=== PATIENT | female | born 1970 ===

== ENCOUNTER 2017-04-01 08:37 | Emergency (ER) | payer OTHER ==
[2017-04-01 09:04] VITALS: BP 119/74; PULSE 67; TEMP 98; O2SAT 100
--- NOTE | 2017-04-01 10:23 | ED PDOC ---
HPI: Back Time Seen by Provider: 04/01/17 09:20 Chief Complaint (Nursing): Back Pain Chief Complaint (Provider): Back pain History Per: Patient History/Exam Limitations: no limitations Onset/Duration Of Symptoms: Days (starts since yesterday in the morning.), Sudden Onset, Persistent, Worse Since (worse since yesterday) Current Symptoms Are (Timing): Still Present Full Body Front + Back: 1 - lumbar area Quality Of Discomfort: Stabbing Severity: Severe Pain Scale Rating Of: 9 Previous Symptoms: Back Pain Associated Symptoms: Other (associated tingling, numbness and weakness in both lower extremities.) Exacerbating Factor(s): Movement, Standing Additional History Per: Patient Additional Complaint(s): CC: back pain. HPI: 46 yo female without PMH presents to ED with severe low back pain starting suddenly after she was cleaning the toilet and did a sudden movement, 9/10, constant, stabbing, radiated to both lower extremities, took Celebrex w/o improvement, worse with movement and walking. Associated tingling, numbness and weakness in both lower extremities, also feels dizzy. Denies fever, nausea, vomiting, headache, urinary difficulties. ROS: negative except as HPI. PMH: none PSH: C- section (1996), Hysterectomy( 2011). Allergies: NSAIDs ( mouth swelling). Meds: Celebrex. Past Medical History Reviewed: Nursing Documentation, Vital Signs Vital Signs: Last Vital Signs Temp 98 F 04/01/17 08:58 Pulse 67 04/01/17 08:58 Resp 20 04/01/17 08:58 BP 119/74 04/01/17 08:58 Pulse Ox 100 04/01/17 08:58 - Medical History PMH: No Chronic Diseases - Surgical History Surgical History: Other surgeries: Hysterectomy ( 2011) - Family History Family History: States: No Known Family Hx - Living Arrangements Living Arrangements: With Family - Social History Current smoker - smoking cessation education provided: No Alcohol: None Drugs: Denies - Home Medications Home Medications: Ambulatory Orders Medication Instructions Recorded Cyclobenzaprine [Cyclobenzaprine 10 mg PO TID #12 tab 04/01/17 HCl] predniSONE [predniSONE Tab] 10 mg PO TID #15 tab 04/01/17 - Allergies Allergies/Adverse Reactions: Allergies Allergy/AdvReac Type Severity Reaction Status Date / Time aspirin Allergy SWELLING Verified 04/01/17 08:57 ibuprofen Allergy SWELLING Verified 04/01/17 08:56 naproxen Allergy SWELLING Verified 04/01/17 08:57 Review of Systems ROS Statement: Except As Marked, All Systems Reviewed And Found Negative Constitutional: Negative for: Fever, Chills, Sweats, Malaise Eyes: Negative for: Pain, Vision Change ENT: Negative for: Ear Pain, Nose Pain, Mouth Pain, Throat Pain Cardiovascular: Negative for: Chest Pain, Palpitations, Edema Respiratory: Negative for: Cough, Shortness of Breath Gastrointestinal: Negative for: Nausea, Vomiting, Abdominal Pain Genitourinary Female: Negative for: Dysuria, Frequency, Incontinence Musculoskeletal: Positive for: Back Pain. Negative for: Neck Pain, Shoulder Pain, Leg Pain Skin: Negative for: Rash Neurological: Positive for: Numbness (both lower extremities), Dizziness. Negative for: Headache Psych: Negative for: Anxiety Physical Exam - Reviewed Nursing Documentation Reviewed: Yes Vital Signs Reviewed: Yes - Physical Exam Appears: Positive for: Uncomfortable (due pain) Head Exam: Positive for: ATRAUMATIC, NORMOCEPHALIC Skin: Positive for: Normal Color, Warm, Dry Eye Exam: Positive for: Normal appearance, EOMI, PERRL ENT: Positive for: Normal ENT Inspection Neck: Positive for: Normal, Supple Cardiovascular/Chest: Positive for: Regular Rate, Rhythm. Negative for: Murmur Respiratory: Positive for: Normal Breath Sounds Pulses-Carotid (L): 2+ Pulses-Carotid (R): 2+ Pulses-Dorsalis Pedis (L): 2+ Pulses-Dorsalis Pedis (R): 2+ Pulses-Femoral (L): 2+ Pulses-Femoral (R): 2+ Pulses-Post. Tibialis (L): 2+ Pulses-Post. Tibialis (R): 2+ Pulses-Radial (L): 2+ Pulses-Radial (R): 2+ Gastrointestinal/Abdominal: Positive for: Normal Exam, Bowel Sounds, Soft. Negative for: Tenderness Back: Positive for: Decreased ROM, Other (unable to perform complete PE due to pain.) Extremity: Positive for: Capillary Refill, Other (unable to perform complete PE due to pain.). 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 Plan: Plain lumbar spine X- ray Flexeril PO Prednisone PO. Disposition - Clinical Impression Clinical Impression: Lumbago - Patient ED Disposition Is Patient to be Admitted: No Counseled Patient/Family Regarding: Diagnosis, Need For Followup, Rx Given - Disposition Disposition: Routine/Home Disposition Time: 11:22 Condition: IMPROVED Additional Instructions: Follow up with PCP on 2-3 days. Return to ED if worsening symptoms or any new symptoms.
--- NOTE | 2017-04-01 10:56 | RAD ---
PROCEDURE: Radiographs of the Lumbar Spine. HISTORY: Back pain COMPARISON: No prior. FINDINGS: BONES: There is normal alignment of the lumbar vertebral bodies. Lumbar lordosis is maintained. Vertebral bodies are normal in height. There is no acute fracture, spondylolysis or spondylolisthesis. DISC SPACES: The disc heights are maintained. OTHER FINDINGS: There are no pathologic soft tissue calcifications. Both sacroiliac joints are normal. IMPRESSION: No acute fracture, spondylolysis or spondylolisthesis.
[2017-04-01 11:57] VITALS: RESP 16
== END 2017-04-01 11:55 | disposition home or self-care (01) ==
LOC: H.ER 08:37
DX: M54.5 Low back pain (principal); R20.2 Paresthesia of skin